=== PATIENT | female | born 1970 | race Caucasian/White ===

== ENCOUNTER 2020-02-28 04:34 | Outpatient (CLI) | payer OTHER, SELFPAY ==
--- NOTE | 2020-02-28 10:39 | DI.MAMMO_ITS ---
EXAM: MAMMO SCREENING CLINICAL HISTORY: screening,Z12.39 TECHNIQUE: Mammograms were interpreted according to the usual protocol including computer analysis w [employer] CAD system, tomosynthesis and C-view imaging. COMPARISON: 2012 FINDINGS: The breasts are composed of heterogeneously dense fibroglandular densities, Breast Density category C . No suspicious masses or suspicious microcalcifications are seen. No skin thickening or abnormal axillary lymph nodes are seen. There has been no significant change from prior exams. IMPRESSION: BI-RADS Category 1, Negative mammogram. Yearly screening mammography is recommended. Breast Density Category C, heterogeneously Dense. The mammogram demonstrates the patient's breast tissue is dense. Dense breast tissue is very common a nd is not abnormal but dense breast tissue can make it harder to find cancer on a mammogram. Also, de nse breast tissue may increase breast cancer risk. This information about the result of the mammogram report was provided to the patient to raise their awareness. Use this report when you speak with the patient about their risks for breast cancer, which includes their family history. At that time, you may recommend additional screening tests (Ultrasound or MRI) as they might be useful based on their r isk. A negative radiographic report should not delay biopsy if a dominant or clinically suspicious mass is present. Up to ten percent of cancers are not identified on mammography. A negative report may reinforce clinical impression. Adenosis and dense breasts may obscure an underlying neoplasm. False positive reports average 6 to 10%.
== END 2020-02-28 04:54 ==
PROVIDERS: PCP Family Medicine; Visit Provider Family Medicine
DX: Z12.31 Encounter for screening mammogram for malignant neoplasm of breast (principal)
CPT/HCPCS: 77063; 77067

== ENCOUNTER 2020-06-12 04:23 | Outpatient (CLI) | payer OTHER, SELFPAY ==
--- NOTE | 2020-06-12 09:40 | DI.RAD_ITS ---
EXAM: RF BARIUM SWALLOW CLINICAL HISTORY: dysphagia,R13.10 TECHNIQUE: 2D and realtime digital imaging was performed. CONTRAST MATERIAL: Oral barium Oral water soluble contrast was administered. COMPARISON: No exams were available for comparison FINDINGS: Standing process checker film reveals nonspecific bowel gas pattern. No free air. ESOPHAGRAM: Esophagram was performed both standing and recumbent. There was no aspiration evident. No prominent tight upper esophageal sphincter. No evidence of Zenk er's diverticulum. Diameter of the esophagus is normal. No abnormal tertiary waves demonstrated. N o Schatzki ring. No fixed lesions evident. No hiatal hernia. The GE junction appears unremarkable. No evidence of abnormal motility. No reflux demonstrated. No tertiary contractions were noted. IMPRESSION: Normal esophogram given the clinical history here I recommend ENT consultation for direct visualizati on-endoscopy.
[2020-06-12] MEDS: Barium Sulfate 60% W/V 355 ML BTL PO (09:41)
[2020-06-12] MEDS: Simethicone/Sod Bicarb/Cit Ac, 4 gram PACKET 1 PACKET PO (09:42)
== END 2020-06-12 04:43 ==
PROVIDERS: PCP Family Medicine; Visit Provider Family Medicine
DX: R13.10 Dysphagia, unspecified (principal)
CPT/HCPCS: 74221; J3490

== ENCOUNTER 2020-08-20 15:27 | Outpatient (REF) | payer OTHER, SELFPAY ==
--- NOTE | 2020-08-20 14:00 | PAPFT_PTH ---
PATIENT: Lily Santana LOC: [facility] U#:[id number] AGE/SX: 49/F ROOM: RE08/20/[address]: Desi Noonan MD, DC : 1970 BED: DIS: 08/20/2020 SPEC #: [id number] RECD: 08/21/20 12:54 STATUS: KENIAMolly RERoxanne #: [id number] JOLYNN: 08/20/20 14:[address]: Desi Noonan DEPT: [facility] Cytology RECD BY: Jessica Payan Tissues: 1 - CX/ENDOCX FOR PAP SMEARS Procedures: PAP THIN PREP/UVM Screening HPV DNA PROBE Comments: [id number]
== END 2020-08-20 15:28 | disposition home or self-care (01) ==
LOC: LBN 15:27
PROVIDERS: PCP Family Medicine; Visit Provider Family Medicine
DX: Z12.4 Encounter for screening for malignant neoplasm of cervix (principal); Z11.51 Encounter for screening for human papillomavirus (HPV)
CPT/HCPCS: 88142; 87624

== ENCOUNTER 2021-04-26 14:04 | Outpatient (REF) | payer OTHER, SELFPAY ==
[2021-04-26 20:29] LABS: Abs Immature Grans 0.01 10^3/uL (0.0-0.06); Absolute Basophil Count 0.03 10^3/uL (0.0-0.2); Absolute Eosinophil Count 0.17 10^3/uL (0.0-0.7); Absolute Lymphocyte Count 1.94 10^3/uL (1.2-3.4); Absolute Monocyte Count 0.61 10^3/uL (0.1-0.8); Absolute Neutrophil Count 5.33 10^3/uL (1.2-6.7); Basophils % 0.4; Eosinophils % 2.1; HCT 39.7 % (36.0-46.0); HGB 13.2 g/dL (11.2-15.7); Immature Grans % 0.1; MCH 29.7 pg (27.0-33.0); MCHC 33.2 % (32.0-36.0); MCV 89.2 fL (80-95); MPV 9.6 fL (8.0-11.0); Monocytes % 7.5; Neutrophils % 65.9; Nucleated RBC 0 %; Platelet Count 258 10^3/uL (130-400); RBC 4.45 10^6/uL (3.93-5.22); RDW 12.2 % (11.7-14.6); RDW-SD 39.9 fL; WBC 8.09 10^3/uL (4.4-10.8)
[2021-04-26 20:30] LABS: ALT 23 U/L (14-59); AST 19 U/L (15-37); Alkaline Phosphatase 73 U/L (46-116); Anion Gap 8.2 mmol/L (3-11); BUN 13 mg/dL (7-18); Bilirubin, Total 0.4 mg/dL (0.2-1.0); CO2 27.8 mmol/L (21.0-32.0); CREATININE 0.7 mg/dL (0.55-1.02); Calcium 8.8 mg/dL (8.5-10.1); Calculated LDL 116 mg/dL (<100); Chloride 104 mmol/L (98-107); Cholesterol 206 mg/dL (<200); Glucose 99 mg/dL (74-106); HDL Cholesterol 77 mg/dL (40-60); Potassium 4.1 mmol/L (3.5-5.1); Sodium 140 mmol/L (136-145); Total Protein 7.1 g/dL (6.4-8.2); Triglyceride 66 mg/dL (<150)
[2021-04-26 20:41] LABS: Lipase 114 U/L (73-393)
== END 2021-04-26 14:05 | disposition home or self-care (01) ==
LOC: LBN 14:04
PROVIDERS: PCP Family Medicine; Visit Provider Family Medicine
DX: I10 Essential (primary) hypertension; R10.9 Unspecified abdominal pain; R31.9 Hematuria, unspecified; Z13.6 Encounter for screening for cardiovascular disorders
CPT/HCPCS: 80053; 80061; 83690; 85025; 87086

== ENCOUNTER 2021-07-12 18:41 | Outpatient (REF) | payer OTHER, SELFPAY ==
[2021-07-12 19:41] LABS: Bilirubin Negative (Negative); Blood Large (Negative); Clarity Clear (Clear); Glucose Negative (Negative); Ketones Negative (Negative); Leukocyte Esterase Negative (Negative); Nitrite Negative (Negative); Specific Gravity >= 1.030 (1.005-1.025); Urobilinogen 0.2 EU/dL (Up TO 0.2); pH 5.5 (5-8)
[2021-07-12 19:50] LABS: Bacteria Few HPF (Negative); Crystals Negative HPF (Negative); Epithelial Cells Few HPF (Negative); RBC >50 HPF (0-2); WBC 0-2 HPF (0-5)
[2021-07-12 19:51] LABS: C & S Indicated? No; Casts Negative LPF (Negative); Mucus Trace (Negative)
== END 2021-07-12 18:42 | disposition home or self-care (01) ==
LOC: LBN 18:41
PROVIDERS: PCP Family Medicine; Visit Provider Family Medicine
DX: N39.0 Urinary tract infection, site not specified (principal)
CPT/HCPCS: 81003; 81015

== ENCOUNTER 2021-08-01 10:06 | Emergency (ER) | payer OTHER, SELFPAY ==
[2021-08-01 10:11] VITALS: BP 141/74; PULSE 68; RESP 16; TEMP 36.4; O2SAT 98
--- NOTE | 2021-08-01 10:30 | DI.CT_ITS ---
Exam(s) CT RENAL COLIC WO EXAM: CT RENAL COLIC WO INDICATION: left flank pain. COMPARISON: CT CT RENAL COLIC WO from 04/26/2021 TECHNIQUE: CT examination was performed without contrast administration. FINDINGS: Images obtained through the lung bases are unremarkable. Visualized portions of the liver and splee n appear intact. Visualized portions of the pancreas are unremarkable. Gallbladder and bile ducts are CT normal. Abdominal aorta is of normal diameter. No significant abdominal wall hernia. No significant abdominal or pelvic adenopathy. Adrenals appear normal bilaterally. The right kidney is unremarkable in appearance. No right hydronephrosis, renal mass, nephrolithiasis , or ureterolithiasis. Incidental 4 millimeter hyperattenuating renal cortical nodule probably repre sents a tiny hemorrhagic cyst. Left kidney appears mildly enlarged and there is moderate left hydronephrosis. There are nonobstruct ing lower pole left renal calculi, the largest measuring about 5 millimeters in diameter. There is dilatation of the left ureter to level just above the ureterovesical junction where there is an apparent 8 millimeter in diameter obstructing calculus. Urinary bladder is nearly empty. IMPRESSION: Obstructing 8 millimeter in diameter distal left ureteral calculus. Additional nonobstructing left r enal calculi are also noted.. RADIATION DOSE DELIVERED: 799.44mGy.cm DLP 799.44mGy.cm Total DLP !Error CTDIvol RADIATION OPTIMIZATION: All CT scans at this facility use at least one of these dose optimization te chniques: automated exposure control; mA and/or kV adjustment per patient size (includes targeted exa ms where dose is matched to clinical indication); or iterative reconstruction.
[2021-08-01 10:34] LABS: Bilirubin Negative (Negative); Blood Moderate (Negative); Clarity Clear (Clear); Glucose Negative (Negative); Ketones Negative (Negative); Leukocyte Esterase Negative (Negative); Nitrite Negative (Negative); Specific Gravity >= 1.030 (1.005-1.025); Urobilinogen 0.2 EU/dL (Up TO 0.2); pH 5.5 (5-8)
[2021-08-01 10:41] LABS: Epithelial Cells Rare HPF (Negative); WBC 0-2 HPF (0-5)
[2021-08-01 10:42] LABS: Bacteria Rare HPF (Negative); C & S Indicated? No; Casts Negative LPF (Negative); Crystals Negative HPF (Negative); Mucus Trace (Negative)
[2021-08-01 10:53] LABS: Abs Immature Grans 0.03 10^3/uL (0.0-0.06); Absolute Basophil Count 0.03 10^3/uL (0.0-0.2); Absolute Eosinophil Count 0.16 10^3/uL (0.0-0.7); Absolute Lymphocyte Count 1.69 10^3/uL (1.2-3.4); Absolute Monocyte Count 0.65 10^3/uL (0.1-0.8); Basophils % 0.4; Eosinophils % 1.9; HCT 41.8 % (36.0-46.0); HGB 14.1 g/dL (11.2-15.7); Immature Grans % 0.4; Lymphocytes % 20.5; MCH 29.9 pg (27.0-33.0); MCHC 33.7 % (32.0-36.0); MCV 88.6 fL (80-95); Monocytes % 7.9; Neutrophils % 68.9; Nucleated RBC 0 %; Platelet Count 216 10^3/uL (130-400); RBC 4.72 10^6/uL (3.93-5.22); RDW 11.9 % (11.7-14.6); WBC 8.26 10^3/uL (4.4-10.8)
--- NOTE | 2021-08-01 10:57 | W.ED.GENAD ---
Discharge Plan Disposition Patient Disposition: HOME Condition: Stable Discharge Details Clinical Impression: Hydronephrosis with renal and ureteral calculous obstruction Primary Care Provider: Desi Noonan ED Provider: Fernando Suarez Home Meds and New Rx's Prescriptions: New ketorolac 10 mg tablet 10 mg PO Q6H PRN (Reason: pain) 5 Days Qty: 15 0RF tamsulosin [Flomax] 0.4 mg capsule 0.4 mg PO QHS Qty: 14 0RF Continued epinephrine 0.3 mg/0.3 mL syringe 0.3 mg subcut Q15M Qty: 2 3RF Rx Instructions: go to the hospital after injecting med Mirena 1 EACH intrauterine device 1 ea Intrauterine ONCE Qty: 1 0RF No Action ondansetron HCl 4 mg tablet 4 mg PO TID-QID PRN (Reason: nausea and vomiting) Qty: 10 0RF Discharge Instructions Instructions: Kidney Stones (ED) Additional Instructions: Continue to monitor your symptoms and feel free to return for any new or significant worsening of symptoms as discussed. These would include uncontrollable vomiting, fever chills, severe worsening of pain, or any further concerns. Due to the medications you received in the emergency department please do not take any further NSAIDs until 7 PM this evening. This will include the prescribed pain medication. You may take acetaminophen as needed just follow directions on packaging. Stay well-hydrated and follow-up with urologist as directed by their office. If you do not hear from the urology office in the next 24 to 48 hours please call them to arrange your appointment. Referrals: Raciel Kerns MD [ [facility] STAFF PHYSICIAN] - 1 week Discharge Data Discharge Date/Time-TO BE ENTERED AT DEPARTURE: 08/01/21 12:54 Medical Decision Making Patient presenting the emergency department for chief complaint of abdominal abdominal/flank pain, nausea vomiting. Patient states that since March she has had intermittent hematuria with discomfort which they feel is secondary to renal calculi. This morning she had severe discomfort, no hematuria, nausea and vomiting. Physical exam shows left lower quadrant tenderness and left CVA tenderness. Exam is otherwise unremarkable for acute findings. Suspicious for renal calculi but given worsening symptoms compared to baseline we will plan on repeat advanced imaging along with labs fluids and pain medication. CT findings show a millimeter obstructing stone in the left ureter with hydro nephrosis CBC unremarkable, CMP also not worrisome, UA does show moderate amount of blood but no signs of infection. Patient reassessed and does state improvement of symptoms. Discussed with patient outpatient treatment with follow-up with urology. Patient placed upon NSAIDs, Flomax, and follow-up list for urology follow-up given significant size of stone. At this time I do not feel that patient has infected stone but discussed clearly return and follow-up precautions. This documentation was generated using [employer] dictation system, please disregard any oddities of phrase or misspellings. HPI General Mode of arrival: ambulatory. Date/Time Provider Initiated Documentation: 08/01/21 10:11. Limitations to Documentation: no limitations. Information obtained by: patient, RN notes reviewed and old records reviewed. History of Present Illness 50 year old F presents to the emergency department with the chief complaint of Left flank pain, nausea vomiting, described as severe and similar to prior episodes, with intensity rated at 7. Quality is described as aching, sharp and constant, and is localized to the abdomen and left. Patient flank. Patient started experiencing this hour(s) (2) and it has been constant. improves with No relieving factors improve symptom(s), No exacerbating factors reported . Patient notes no other symptoms.. Patient did receive the following treatments prior to arrival, none and NSAID (600mg ibuprofen) Related Data Home Medications Medication Instructions Recorded Confirmed levonorgestrel 20 mcg/24 hours (7 1 ea INTRAUTERINE ONCE #1 implant 04/01/16 08/02/21 yrs) 52 mg intrauterine device (Mirena) epinephrine 0.3 mg/0.3 mL 0.3 mg (0.3 mL) SUBCUT Q15M #2 ea 05/26/20 08/02/21 injection syringe ketorolac 10 mg tablet 10 mg PO Q6H PRN 5 Days #15 tab 08/01/21 08/02/21 tamsulosin 0.4 mg capsule (Flomax) 0.4 mg PO QHS #14 cap 08/01/21 08/02/21 ondansetron HCl 4 mg tablet 4 mg PO TID-QID PRN #10 tab 08/02/21 08/02/21 Previous Rx's Medication Instructions Recorded epinephrine 0.3 mg/0.3 mL 0.3 mg (0.3 mL) SUBCUT Q15M #2 ea 05/26/20 injection syringe ketorolac 10 mg tablet 10 mg PO Q6H PRN 5 Days #15 tab 08/01/21 tamsulosin 0.4 mg capsule (Flomax) 0.4 mg PO QHS #14 cap 08/01/21 ondansetron HCl 4 mg tablet 4 mg PO TID-QID PRN #10 tab 08/02/21 Allergies Allergy/AdvReac Type Severity Reaction Status Date / Time garlic Allergy Severe Verified 08/02/21 14:17 General Stated Complaint: FlankPain KIM: 3 Review of Systems Constitutional Constitutional: Denies body ache(s), Denies chills, Denies fever(s), Denies malaise and Denies weakness Cardiovascular Cardiovascular: Denies chest pain Respiratory Respiratory: Reports system reviewed and no additional complaints, except as documented Gastrointestinal Gastrointestinal: Reports abdominal pain, Reports nausea and Reports vomiting Genitourinary Genitourinary: Reports as per HPI, Denies hematuria (None today but has occurred in the past), Denies difficulty voiding, Denies dysuria, Reports flank pain, Denies urinary urgency and Denies vaginal discharge Musculoskeletal Musculoskeletal: Denies back pain Neurologic Neurologic: Denies confusion and Denies weakness Psychiatric Psychiatric: Denies confusion PFSH All Active Problems (Updated 08/02/21 @ 14:16 by Geovany Abreu) Nonintractable headache (Acute 08/17/15) IUD surveillance (Acute 02/26/16) Allergies (Acute) Dysphagia (Acute) UTI (urinary tract infection) (Acute) Hydronephrosis with renal and ureteral calculous obstruction (Acute) Medical History (Updated 08/02/21 @ 14:16 by Geovany Abreu) 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 denies this Family History Mother No problems noted. Father Heart disease Brother No problems noted. Son No problems noted. Daughter No problems noted. Daughter No problems noted. Maternal Grandfather , 84 No problems noted. Paternal Grandfather , 76 No problems noted. Maternal Grandmother , 92 No problems noted. Paternal Grandmother , 82 No problems noted. Social History Smoking/Tobacco Use Status: Never Second Hand Exposure: Yes Smoking risk assessment performed?: Yes Alcohol Intake: current Alcohol Intake frequency: holidays/special occasions only Alcohol type: hard liquor Drug use: Never Substance use type: does not use Caregiver/Support person: No Household members: spouse and children Housing: house Communication Needs: None Pets and animals: Yes Pets and animals: cat(s) Sexually active: Yes Do you think of yourself as: straight/heterosexual Current gender identity: female What is your relationship status?: How often do you talk on the phone with friends or family?: three or more times per week How often do you get together with friends or relatives?: decline to answer How often do you attend scientology or mormon services?: decline to answer Do you belong to any clubs or organized social groups?: yes Panel score (0-1 are the most socially isolated patients): 3 What type of physical activity do you participate in: regular exercise Duration: 15-30 minutes/day Frequency: 5-6 times per week Shaye/Denominational: [employer] Special shaye needs: No Seatbelt use: always Helmet use: Yes Drive intox or ride w/intox company driver: No Do you feel safe at home: Yes Do you feel safe in your relationship?: Yes Exam Const General: cooperative and no acute distress Orientation: alert, awake and oriented x3 Resp Effort & Inspection: normal respiratory effort and able to speak in complete sentences Auscultation: clear to auscultation bilaterally Cardio Rate: regular rate Rhythm: regular rhythm Heart Sounds: S1 normal and S2 normal GI Palpation: not firm, no guarding, not rigid and tender in the LLQ General: CVA tenderness on the left Back/Spine/Pelvis Back: CVA tenderness Neuro General: patient alert, patient awake and patient oriented x3 Extrem General: capillary refill normal Course Vital Signs Vital signs: Vital Signs Temperature 36.4 C L 08/01/21 10:11 Pulse 68 08/01/21 10:11 Respiratory Rate 16 08/01/21 10:11 Blood Pressure 141/74 H 08/01/21 10:11 Pulse Oximetry 98 08/01/21 10:11 Temperature 36.4 C L 08/01/21 10:11 Pulse 68 08/01/21 10:11 Respiratory Rate 16 08/01/21 10:11 Respiratory Effort Non-Labored 08/01/21 10:16 Blood Pressure 141/74 H 08/01/21 10:11 Blood Pressure Position Sitting 08/01/21 10:11 Pulse Oximetry 98 08/01/21 10:11 Oxygen Delivery Method Room Air 08/01/21 10:11 Oxygen Flow Rate 0 08/01/21 10:11 Pain Level 7 08/01/21 10:26 Lab/Test Results Lab/Test Results: Laboratory Tests Range/Units 08/01/21 08/01/21 10:10 10:19 WBC (4.4-10.8) 10^3/uL 8.26 RBC (3.93-5.22) 10^6/uL 4.72 Hgb (11.2-15.7) g/dL 14.1 Hct (36.0-46.0) % 41.8 MCV (80-95) fL 88.6 MCH (27.0-33.0) pg 29.9 MCHC (32.0-36.0) % 33.7 RDW (11.7-14.6) % 11.9 Plt Count (130-400) 10^3/uL 216 MPV (8.0-11.0) fL 9.0 Immature Gran % 0.4 Neutrophils % 68.9 Lymphocytes % 20.5 Monocytes % 7.9 Eosinophils % 1.9 Basophils % 0.4 Nucleated RBC % % 0 Absolute Neutrophils (1.2-6.7) 10^3/uL 5.70 Absolute Lymphocytes (1.2-3.4) 10^3/uL 1.69 Absolute Monocytes (0.1-0.8) 10^3/uL 0.65 Absolute Eosinophils (0.0-0.7) 10^3/uL 0.16 Absolute Basophils (0.0-0.2) 10^3/uL 0.03 Urine Color (Yellow) Yellow Urine Clarity (Clear) Clear Urine pH (5-8) 5.5 Ur Specific [place] (1.005-1.025) >= 1.030 H Urine Protein (Negative) mg/dL Trace H Urine Ketones (Negative) mg/dL Negative Urine Blood (Negative) Moderate H Urine Nitrite (Negative) Negative Urine Bilirubin (Negative) Negative Urine Urobilinogen (Up TO 0.2) EU/dL 0.2 Ur Leukocyte Esterase (Negative) Negative Urine RBC (0-2) HPF 10-20 H Urine WBC (0-5) HPF 0-2 Ur Epithelial Cells (Negative) HPF Rare Urine Crystals (Negative) HPF Negative Urine Bacteria (Negative) HPF Rare Urine Casts (Negative) LPF Negative Urine Mucus (Negative) Trace Ur Culture Indicated? No Urine Glucose (Negative) mg/dL Negative POC- Test(urine) Negative
[2021-08-01] MEDS: HYDROmorphone 2 MG/ML VIAL 0.5 MG IVP (10:58)
[2021-08-01] MEDS: Ondansetron 4 MG/2 ML VIAL IVP (10:59)
[2021-08-01] MEDS: Normal Saline 1,000 ML 1000 ML IV (11:00)
[2021-08-01 11:10] LABS: ALT 15 U/L (14-59); AST 18 U/L (15-37); Albumin 4.2 g/dL (3.4-5.0); Alkaline Phosphatase 72 U/L (46-116); Anion Gap 6.9 mmol/L (3-11); BUN 16 mg/dL (7-18); Bilirubin, Total 0.6 mg/dL (0.2-1.0); CO2 27.1 mmol/L (21.0-32.0); Calcium 9.1 mg/dL (8.5-10.1); Chloride 107 mmol/L (98-107); Estimated GFR 59.18 (mL/min/1.73m2); Glucose 90 mg/dL (74-106); Potassium 3.9 mmol/L (3.5-5.1); Sodium 141 mmol/L (136-145); Total Protein 7.7 g/dL (6.4-8.2)
--- NOTE | 2021-08-01 11:30 | DI.VRAD_ITS ---
PROCEDURE INFORMATION: Exam: CT Abdomen And Pelvis Without Contrast Exam date and time: 08/01/2021 10:45 AM Age: 50 years old Clinical indication: Other: Left flank pain TECHNIQUE: Imaging protocol: Computed tomography of the abdomen and pelvis without contrast. COMPARISON: CT RENAL COLIC WO 04/26/2021 3:15 PM FINDINGS: Lungs: Visualized lung bases are clear. No pleural effusions. Liver: Unremarkable. Gallbladder and bile ducts: Unremarkable. No calcified gallstones. No intrahepatic or extrahepatic biliary ductal dilation. Pancreas: Unremarkable. Spleen: Unremarkable. No splenomegaly. Adrenal glands: Unremarkable. No masses. Kidneys and ureters: There is moderate left hydroureteronephrosis secondary to an obstructing 8 mm x 4 mm x 8 mm calculus in the distal left ureter, just proximal to the ureterovesical junction (series 2, image 109 and series 4, image 52). This calculus measures 848 Hounsfield units in attenuation. There is mild left perinephric fat stranding, consistent with acute obstructive uropathy. There are 3 calculi in the lower pole of the left kidney which measure 1 mm, 4 mm, and 5 mm, respectively. No calcifications are identified in the right kidney or right ureter. The right renal collecting system and right ureter are normal in caliber. An incidental subcentimeter focus cortical hyperattenuation in the lateral mid right kidney most likely represents an incidental tiny hemorrhagic cyst. Stomach and bowel: Unremarkable. No obstruction. No mucosal thickening. Appendix: A normal, nondilated retrocecal appendix is identified. Intraperitoneal space: Unremarkable. No ascites, fluid collection, or pneumoperitoneum. Retroperitoneal space: Unremarkable. No retroperitoneal collection or mass. Vasculature: Unremarkable. The abdominal aorta is normal in caliber. Lymph nodes: No pathologically enlarged lymph nodes. Urinary bladder: Unremarkable. Reproductive: There is an intrauterine device in place. The uterus has a lobulated contour suggesting the presence of a right fundal fibroid, otherwise not well assessed by noncontrast CT technique. Bones/joints: No suspicious osseous lesions. Lower lumbar spondylosis and transitional lumbosacral anatomy are noted. Soft tissues: Unremarkable. Other findings: None. IMPRESSION: 1. Moderate left hydroureteronephrosis secondary to an 8 mm x 4 mm x 8 mm calculus in the distal left ureter. 2. Multiple small calculi in the left kidney. 3. Additional incidental/nonemergent findings are discussed in the body of the report. Dictated and Authenticated by: Lynn Khan MD. Ordering:MANDY King MD
--- NOTE | 2021-08-01 12:14 | NUR.NOTE ---
Nursing Note: Referral faxed to [facility]rology for 8mm kidney stone for follow up; time frame at their discretion. Letty Denny
[2021-08-01] MEDS: Ketorolac 15 MG/ML VIAL IVP (12:26)
--- NOTE | 2021-08-01 18:46 | NUR.NOTE ---
Nursing Note: Lily's called stating she was having a lot of pain and vomiting. Advised to come back to er for pain management and vomiting treatment. He states that her next pain pill is due at 7:00 and they will see if she can keep it down. Encouraged to come back to er at any time her pain and vomiting is out of controll. Verbalizes understanding.
[2021-08-02 14:10] LABS: Source Nasal/Nares
[2021-08-02 14:50] LABS: COVID-19 PCR Negative (Negative)
== END 2021-08-01 12:54 | disposition home or self-care (01) ==
PROVIDERS: Urology; Emergency Provider Nurse Practitioner Family; PCP Family Medicine
DX: N13.2 Hydronephrosis with renal and ureteral calculous obstruction (principal)
CPT/HCPCS: 36415; 80053; 81025; 87635; 96361; 96374; 96375; 99284; 74176; 81003; 81015; 84550; 85025; J1885; J2405

== ENCOUNTER 2021-08-03 06:10 | Day surgery (SDC) | payer OTHER, SELFPAY ==
[2021-08-03] VITALS (8 sets, daily range): BP systolic 102–121; BP diastolic 57–72; PULSE 55–67; RESP 9–18; TEMP 36.6–36.7; O2SAT 98–100; BMI 26.4
--- NOTE | 2021-08-03 06:47 | HPE_ITS ---
Date of service: 08/03/21 Time of Service: 06:47 Assessment and Plan Assessment and plan (1) Hydronephrosis with renal and ureteral calculous obstruction: Status: Acute Assessment and plan: With her large ureteral stone and her persistent symptoms, we will move forward with ureteroscopy. If we are unable to access her stone ureteroscopically, we may need to place a ureteral stent temporarily and arrange for a staged procedure. History of Present Illness History of Present Illness Chief Complaint: Left ureteral stone Narrative: This is a 50 year old woman who has no prior history of kidney stones. She has been having some left-sided discomfort and intermittent gross hematuria for about 4 months.? She was evaluated with a noncontrast CT scan in March.? Nonobstructing stones were identified at that time. Since then, she has had a chronic feeling of pressure and needing to void.? She has been treated for urinary tract infections when she has seen blood in the urine.? The blood in the urine would resolve, but the pressure would remain. Two days ago, she developed severe left flank pain.? She became diaphoretic and nauseated.? She felt a knifelike pain that extended into the vaginal cavity.? She began vomiting and presented to the emergency room. While in the ER, she had a repeat CT scan.? One of her left-sided kidney stones had migrated to the left ureterovesical junction. She continues to have pain and nausea.? She is not having any fevers. She does have a family history of kidney stones (sister).? She has no known history of gout or hyperparathyroid disease. Review of Systems Narrative: No fevers or chills No vision change or dysphasia No diabetes or thyroid No shortness of breath, cough or hemoptysis No chest pain or palpitations No hepatitis, ulcers, jaundice No seizures, strokes or peripheral neuropathy No bleeding disorders or anemia No gout. 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 denies this Surgical History (Updated 08/03/21 @ 06:16 by Pavithra Jalloh) H/O discectomy Family History Mother No problems noted. Father Heart disease Brother No problems noted. Son No problems noted. Daughter No problems noted. Daughter No problems noted. Maternal Grandfather , 84 No problems noted. Paternal Grandfather , 76 No problems noted. Maternal Grandmother , 92 No problems noted. Paternal Grandmother , 82 No problems noted. Social History Smoking/Tobacco Use Status: Never Second Hand Exposure: Yes Smoking risk assessment performed?: Yes Alcohol Intake: current Alcohol Intake frequency: holidays/special occasions only Alcohol type: hard liquor Drug use: Never Substance use type: does not use Caregiver/Support person: No Household members: spouse and children Housing: house Communication Needs: None Pets and animals: Yes Pets and animals: cat(s) Sexually active: Yes Do you think of yourself as: straight/heterosexual Current gender identity: female What is your relationship status?: How often do you talk on the phone with friends or family?: three or more times per week How often do you get together with friends or relatives?: decline to answer How often do you attend restorationism or yarsanism services?: decline to answer Do you belong to any clubs or organized social groups?: yes Panel score (0-1 are the most socially isolated patients): 3 What type of physical activity do you participate in: regular exercise Duration: 15-30 minutes/day Frequency: 5-6 times per week Shaye/Faith: [employer] Special shaye needs: No Seatbelt use: always Helmet use: Yes Drive intox or ride w/intox recycling collections driver: No Do you feel safe at home: Yes Do you feel safe in your relationship?: Yes Meds Allergies and Home Medications Allergies Allergy/AdvReac Type Severity Reaction Status Date / Time garlic Allergy Severe Verified 08/03/21 06:16 Home Medications Medication Instructions Recorded Confirmed Type levonorgestrel 20 mcg/24 hours (7 1 ea INTRAUTERINE ONCE #1 implant 04/01/16 08/02/21 History yrs) 52 mg intrauterine device (Mirena) epinephrine 0.3 mg/0.3 mL 0.3 mg (0.3 mL) SUBCUT Q15M #2 ea 05/26/20 08/02/21 Rx injection syringe ketorolac 10 mg tablet 10 mg PO Q6H PRN 5 Days #15 tab 08/01/21 08/03/21 Rx tamsulosin 0.4 mg capsule (Flomax) 0.4 mg PO QHS #14 cap 08/01/21 08/03/21 Rx ondansetron HCl 4 mg tablet 4 mg PO TID-QID PRN #10 tab 08/02/21 08/03/21 Rx Exam Const General: cooperative Orientation: alert, awake and oriented x3 Neck Neck: supple Resp Effort & Inspection: normal respiratory effort Auscultation: clear to auscultation bilaterally Cardio Rate: regular rate Rhythm: regular rhythm GI Palpation: soft and no masses Neuro General: patient alert, patient awake and patient oriented x3 Results Last Vital Signs Temp 36.7 C 08/03/21 06:27 Pulse 67 08/03/21 06:27 Resp 18 08/03/21 06:27 BP 121/72 08/03/21 06:27 Pulse Ox 99 08/03/21 06:27
--- NOTE | 2021-08-03 06:49 | W.ANESPRE ---
General Info Date of Service Date Performed: 08/03/21 Height: 5 ft 3 in Weight: 67.7 kg Body Mass Index (BMI): 26.4 Surgical Procedure: Operation Date: 08/03/21 07:40 Proposed Procedure Side Surgeon p Cystoscopy/Laser/LT Retrograde/LTUreteroscopy/Poss. Stent Placement Left Raciel Kerns MD Meds Allergies and Home Medications Allergies Allergy/AdvReac Type Severity Reaction Status Date / Time garlic Allergy Severe Verified 08/03/21 06:16 Home Medication Medication Instructions Recorded levonorgestrel 20 mcg/24 hours (7 1 ea INTRAUTERINE ONCE #1 implant 04/01/16 yrs) 52 mg intrauterine device (Mirena) epinephrine 0.3 mg/0.3 mL 0.3 mg (0.3 mL) SUBCUT Q15M #2 ea 05/26/20 injection syringe ketorolac 10 mg tablet 10 mg PO Q6H PRN 5 Days #15 tab 08/01/21 tamsulosin 0.4 mg capsule (Flomax) 0.4 mg PO QHS #14 cap 08/01/21 ondansetron HCl 4 mg tablet 4 mg PO TID-QID PRN #10 tab 08/02/21 Current Visit Medications: Current Medications Generic Name Dose Route Start Last Admin Trade Name Freq PRN Reason Stop Dose Admin Ringer's Solution 1,000 mls @ 80 mls/hr 08/03/21 06:00 IV 08/26/21 23:59 INFUSION SHRUTI Cefazolin Sodium/Dextrose 2 gm in 50 mls @ 100 mls/hr 08/03/21 06:00 Ancef Duplex IVPB 08/03/21 23:59 PREOP SHRUTI IV Miscellaneous Supplies 1 each 08/03/21 06:00 Iv Access IV 08/26/21 23:59 DIRECTED SHRUTI Sodium Chloride 0 ml 08/03/21 06:00 Normal Saline Flush 10 Ml Syr IV 08/26/21 23:59 PRN PRN Sodium Chloride 0 ml 08/03/21 06:00 Normal Saline 10 Ml Vial IJ 08/26/21 23:59 DIRECTED PRN Sterile Water 0 ml 08/03/21 06:00 Water,Injection,Sterile 10 Ml Vial IJ 08/26/21 23:59 DIRECTED PRN PFSH Active Problems Active Problems: Problem Status Onset Code Nonintractable headache 08/17/15 R51 IUD surveillance 02/26/16 Z30.431 Allergies T78.40XA Dysphagia R13.10 UTI (urinary tract infection) N39.0 Hydronephrosis with renal and ureteral calculous obstruction N13.2 Medical History Medical History 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 denies this Surgical History Surgical History (Updated 08/03/21 @ 06:16 by Pavithra Jalloh) H/O discectomy Tobacco Smoking/Tobacco Use Status: Never Passive smoking exposure: Yes Second hand exposure: Yes Alcohol Alcohol Intake: current Alcohol intake frequency: holidays/special occasions only Alcohol type: hard liquor Substance Use Substance use: Never Substance use type: does not use Vital Signs and Lab Results Vital Signs Most Recent Vital Signs in EMR: Most Recent Vital Signs Temp Pulse Resp BP Pulse Ox 36.7 C 67 18 121/72 99 08/03/21 06:27 08/03/21 06:27 08/03/21 06:27 08/03/21 06:27 08/03/21 06:27 Lab Results Blood Type / Crossmatch: No Data to Display Complete Blood Count: White Blood Count 8.26 10^3/uL (4.4-10.8) 08/01/21 10:19 08/01/21 Red Blood Count 4.72 10^6/uL (3.93-5.22) 08/01/21 10:19 08/01/21 Hemoglobin 14.1 g/dL (11.2-15.7) 08/01/21 10:19 08/01/21 Hematocrit 41.8 % (36.0-46.0) 08/01/21 10:19 08/01/21 Platelet Count 216 10^3/uL (130-400) 08/01/21 10:19 08/01/21 Complete Metabolic Panel: Sodium Level 141 mmol/L (136-145) 08/01/21 10:19 08/01/21 Potassium Level 3.9 mmol/L (3.5-5.1) 08/01/21 10:19 08/01/21 Chloride Level 107 mmol/L (98-107) 08/01/21 10:19 08/01/21 Carbon Dioxide Level 27.1 mmol/L (21.0-32.0) 08/01/21 10:19 08/01/21 Blood Urea Nitrogen 16 mg/dL (7-18) 08/01/21 10:19 08/01/21 Creatinine 1.0 mg/dL (0.55-1.02) 08/01/21 10:19 08/01/21 Estimated GFR/1.73 m2 59.18 (mL/min/1.73m2) 08/01/21 10:19 08/01/21 Calcium Level 9.1 mg/dL (8.5-10.1) 08/01/21 10:19 08/01/21 Albumin 4.2 g/dL (3.4-5.0) 08/01/21 10:19 08/01/21 Glucose Level 90 mg/dL (74-106) 08/01/21 10:19 08/01/21 Liver Function Panel: Alanine Aminotransferase (ALT/SGPT) 15 U/L (14-59) 08/01/21 10:19 08/01/21 Aspartate Amino Transf (AST/SGOT) 18 U/L (15-37) 08/01/21 10:19 08/01/21 Coagulation Panel: No Data to Display Cardiac Panel: No Data to Display Arterial Blood Gas: No Data to Display Venous Blood Gas: No Data to Display Pancreas Panel: No Data to Display Thyroid Panel: No Data to Display Infectious Disease: Coronavirus (COVID-19)(PCR) Negative (Negative) 08/02/21 14:00 08/02/21 Coronavirus 2019 Source Nasal/Nares 08/02/21 14:00 08/02/21 Blood Cultures: No Data to Display Toxicology Panel: No Data to Display Panel: No Data to Display Imaging and Studies Imaging and Studies Study information below may be from another EMR and interpreted by another provider. Please see original notes in EMR for more complete details. Echocardiogram Summary: Date of Exam: 02/26/16ex: F : 1970Age: 45 *STUDY CONCLUSIONS* Summary: 1. Left ventricle: The cavity size was normal. Wall thickness was normal. Systolic function was normal. The estimated ejection fraction was 60-65%. Wall motion was normal; there were no regional wall motion abnormalities. 2. Right ventricle: The cavity size was normal. Systolic function was normal. 3. Mitral valve: Mildly thickened leaflets. Mild systolic bowing without prolapse, involving the anterior leaflet. There was mild regurgitation directed posteriorly. Anesthesia Assessment and Plan Anesthesia History Personal History: No History of Anesthesia Complications Family History: No Family History of Anesthesia Complications Exercise Tolerance Exercise Tolerance: Metabolic Equivalents>4 Pertinent Negatives Pertinent Negatives: No Symptoms of GERD Cardiac & Pulmonary Exam Cardiac Exam: Normal S1/S2 Heart Sounds Pulmonary Exam: Clear Bilateral Breath Sounds Implantable Cardiac Device Does patient have a Pacemaker or an ICD?: No Airway Exam Known Difficult Airway: No Mallampati Class: 2 Mouth Opening: Normal (> 3cm) Thyromental Distance: Greater than 3 cm Neck Range of Motion: Full ROM Neck Circumference: Normal Teeth Condition: Normal Dentition ASA Classification ASA Score: ASA 2 Emergency Case?: No NPO Status NPO Status: NPO Clears >2 hours, Solids >8 hours Status Status: Negative HCG Anesthesia Plan Resuscitation Status: Full Code Anesthesia Technique: General Anesthesia Airway Planned: LMA Monitors Used: Standard Monitors
[2021-08-03] MEDS: Lactated Ringers 1,000 ML 80 ML IV (06:51)
[2021-08-03] MEDS: Ondansetron 4 MG/2 ML VIAL IVP (07:05)
[2021-08-03] MEDS: ceFAZolin 2 GM/50 ML BAG IVPB (07:29)
[2021-08-03] MEDS: Lidocaine 2% Jelly 6 ML SYR (07:44)
[2021-08-03] MEDS: Omnipaque 300 MG/ML 50 ML BTL (08:13)
--- NOTE | 2021-08-03 08:16 | DI.RAD_ITS ---
Exam(s) XR RETROGRADE IN OR EXAM: XR RETROGRADE IN OR CLINICAL HISTORY: ureteral stone. TECHNIQUE: 2D digital imaging was performed. COMPARISON: No exams were available for comparison FINDINGS: Possibly was provided during urologic procedure. Images reveal opacification with retrograde contras t of the left collecting system passage of a wire and placement a left ureteral stent. Total fluoroscopy time 57.5 seconds. Cumulative dose 8.9855mGy IMPRESSION: DATA REPOSITORY: RADIATION DOSE DELIVERED:
--- NOTE | 2021-08-03 08:19 | W.PM.DSUDISC ---
Discharge Plan Disposition Patient Disposition: HOME Condition: Stable Discharge Details Reason For Visit: ureteroscopy Attending Provider: Raciel Kerns Primary Care Provider: Desi Noonan Meds and New Rx's Prescriptions: No Action epinephrine 0.3 mg/0.3 mL syringe 0.3 mg subcut Q15M Qty: 2 3RF Rx Instructions: go to the hospital after injecting med ondansetron HCl 4 mg tablet 4 mg PO TID-QID PRN (Reason: nausea and vomiting) Qty: 10 0RF Mirena 1 EACH intrauterine device 1 ea Intrauterine ONCE Qty: 1 0RF ketorolac 10 mg tablet 10 mg PO Q6H PRN (Reason: pain) 5 Days Qty: 15 0RF tamsulosin [Flomax] 0.4 mg capsule 0.4 mg PO QHS Qty: 14 0RF Discharge Instructions Additional Instructions: No need to strain urine Followup 3 to 7 days for stent removal - tell my office there is a string on the stent Followup with me 4 to 6 weeks with renal US Activity:: Activity as Tolerated Shower/Bathe:: 24 hours Diet:: As Tolerated Discharge Orders Discharge Orders: Discharge Order (Routine); Ordered 08/03/21 Ordered By: Raciel Kerns DS: Diagnosis Discharge Diagnosis (1) Hydronephrosis with renal and ureteral calculous obstruction: Status: Acute
--- NOTE | 2021-08-03 08:29 | W.PM.OP ---
Date of service: 08/03/21 Time of Service: 08:29 Operative Note Operative Note DATE OF PROCEDURE: 08/03/21 PRE-OP DIAGNOSIS: Left ureteral stone Left renal stones PROCEDURE: Cystoscopy, left retrograde pyelogram, Left ureteroscopy with stone extractions, insert left ureteral stent SURGEON: Raciel Kerns ANESTHESIA TYPE: General LMA/ETT Refer to Anesthesia Record Patient was transported to: PACU Patient's condition: stable Implants: 6 Montserratian by 22 to 30 cm left ureteral stent Indications: This is a 50-year-old woman who presented to the emergency department with left flank pain, nausea and pelvic pressure. On evaluation, she was identified as having a large left distal ureteral stone causing hydroureter and hydronephrosis. There were also nonobstructing stones in the lower pole of the left kidney. Because of persistent symptoms, she presents for stone manipulation. Findings: Large left distal ureteral stone Two smaller stones in left lower pole calyx Procedure Description: The patient was brought to the operating room on 08/03/2021. She was given a dose of preoperative IV antibiotics. After successful induction of general anesthesia, she was placed in the dorsal lithotomy position. Her genitalia was prepped and draped. 2% Xylocaine jelly was instilled into the urethra to act as a local anesthetic. A 22 [place]erratian rigid cystoscope was passed through the urethra into the bladder. The bladder was inspected with a 30 degree lens. The base of the bladder had distended slightly. The orifices appeared normal with no surrounding edema. The left orifice was cannulated with a 5 [place]erratian access catheter and a retrograde film was obtained by injecting Omnipaque through the access catheter under fluoroscopic guidance. A large filling defect was outlined in the left distal ureter. I was then able to pass a Glidewire through the access catheter and advanced the wire above the level of the stone. I removed the access catheter leaving the wire in place. I then passed a semirigid ureteroscope through the urethra and navigated the scope into the left ureter. A large stone was visualized. I was able to grasp the stone in a Aliyah stone basket and remove it in its entirety. We then passed the dual-lumen catheter over the wire and positioned a second wire. We removed the dual-lumen catheter and chose one of the wires as a working wire and the other as a safety wire. We advanced a ureteral access sheath over the working wire leaving the safety wire in place. I then introduced the flexible ureteroscope and identified 2 stones in the lower pole calyx. Each of the stones was grasped in a 0 tip stone basket and removed in its entirety. All stone fragments were sent to pathology for chemical analysis. We removed the ureteral access catheter and passed a 6 [place]serratian variable length stent over the safety wire. The proximal end of the stent was curled in the renal pelvis and the distal and was curled within the bladder. The positioning of the stent was confirmed both fluoroscopically and cystoscopically. The safety string was left in place and brought through the urethral meatus. The end of the safety string was tucked into the patient's vaginal cavity. She tolerated this procedure with no complications. She was taken to the recovery room in stable condition.
--- NOTE | 2021-08-03 08:49 | W.ANESPOSTOP ---
Postoperative Evaluation Date, Time and Location Date Performed: 08/03/21 Time Performed: 08:50 Patient Location: PACU Vital Signs Most Recent Imported Vital Signs: Most Recent Vital Signs Temp Pulse Resp BP Pulse Ox 36.6 C 56 L 14 112/63 98 08/03/21 08:38 08/03/21 08:38 08/03/21 08:38 08/03/21 08:38 08/03/21 08:38 Pain Score Most Recent Pain Score: Most Recent Pain Score Pain Level 0 08/03/21 08:38 Assessment Mental Status: Awake (Alert & Oriented to Patient Baseline) Airway and Respiratory Function: Patent airway with normal (patient baseline) respiratory exam Cardiovascular Function: Hemodynamically Stable Hydration Status: Adequately Hydrated Nausea & Vomiting: No Nausea or Vomiting Pain: Pt. Denies Any Pain Peripheral Nerve Block: Patient did not receive a nerve block
[2021-08-03] MEDS: Phenazopyridine 200 MG TAB PO (09:12)
[2021-08-03] MEDS: traMADol 50 MG TAB PO (09:17)
[2021-08-10 11:52] LABS: Source: Left Kidney
== END 2021-08-03 10:06 | disposition home or self-care (01) ==
PROVIDERS: PCP Family Medicine; Visit Provider Urology
PROC: (CPT 52320; principal; 2021-08-03 07:30)
DX: N13.2 Hydronephrosis with renal and ureteral calculous obstruction (principal)
CPT/HCPCS: 52320; 52332; 81025; 74420; 82365; J0690; J1100; J1885; J2001; J2405; J2704; Q9967

== ENCOUNTER → 2021-11-19 00:34 | Outpatient (CLI) | payer OTHER, SELFPAY ==
--- OUTSIDE RECORDS SUMMARY | 2021-11-19 00:41 | XMS_ITS | Encounter Summary ---
:1970 Author Organization [facility] [address] Care Team Providers Name Role Phone Desi Noonan MD Primary Care Provider Encounter Details Date Type Department Care Team Description 11/25/2010 Orders Only Pain Management at [facility], [facility] [place] [address] [facility] [phone] [facility] [place], [place] [address] (Wo rk) Social History Tobacco Use Types Packs/Day Years Used Date Never Assessed Sex Assigned at Date Recorded Not on file documented as of this encounter Plan of Treatment Not on filedocumented as of this encounter Procedures Procedure Name Priority Date/Time Associated Diagnosis Comme nts FILM LIBRARY Routine 11/25/2010 12:15 PM Results for this STORAGE ONLY MR EDT procedure ar e in SPINE the results section. documented in this encounter Results FILM LIBRARY- STORAGE ONLY MR [facility] (11/25/2010 12:15 PM EDT) Specimen (Source) Anatomical Collection Method Collection Time Re ceived Time Location / / Volume Laterality 11/25/2010 12:15 PM EDT Narrative RAD - 10/02/2013 7:08 PM EDT This is a non-reportable exam. Procedure Note Kaushik Hernandez - 10/02/2013Formatting of t his note might be different from the original. This is a non-reportable exam. Matt Lee MD [facility] FILM LIBRARY ORDERABLES Performing Organization Address City/State/ZIP Code Phon e Number DH RAD DH RAD [address] [facility] [place] [address] documented in this encounter Visit Diagnoses Not on filedocumented in this encounter Care Teams Almond Blancher Operator Relationship Specialty Start Date End Date Desi Noonan MD PCP - General 04/20/[address] [place] [address] documented as of this encounter
--- OUTSIDE RECORDS SUMMARY | 2021-11-19 00:41 | XMS_ITS | Encounter Summary ---
:1970 Author Organization [facility] [place] [address] Care Team Providers Name Role Phone Desi Noonan MD Primary Care Provider Encounter Details Date Type Department Care Team Description 12/30/2010 Abstract Infectious Disease a t [facility] Mary Khan, [place] [address] Social History Tobacco Use Types Packs/Day Years Used Date Never Assessed Sex Assigned at Date Recorded Not on file documented as of this encounter Plan of Treatment Not on filedocumented as of this encounter Visit Diagnoses Diagnosis Telangiectasia Other and unspecified capillary diseases documented in this encounter Care Teams Brand Marketing Specialist Relationship Specialty Start Date End Date Desi Noonan MD PCP - General 04/20/[address] [place], [place] [id number] documented as of this encounter
--- OUTSIDE RECORDS SUMMARY | 2021-11-19 00:41 | XMS_ITS | Clinical Summary ---
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 Overview: asymptomatic Social History Tobacco Use Types Packs/Day Years Used Date Never Smoker Alcohol Use Standard Drinks/Week Comments Not Asked 0 (1 standard drink = 0.6 oz pure alcoho l) Sex Assigned at Date Recorded Not on file Last Filed Vital Signs Vital Sign Reading Time Taken Comments Blood Pressure 110/76 12/31/2010 10:34 AM EDT Pulse 65 12/31/2010 10:34 AM EDT Temperature 36.4 ??C (97.6 ??F) 12/31/2010 10:34 AM EDT Respiratory Rate 14 12/31/2010 10:34 AM EDT Oxygen Saturation 100% 12/31/2010 10:34 AM EDT Inhaled Oxygen Concentration - - Weight 56.7 kg (125 lb) 01/05/2011 12:21 PM EDT Height 157.5 cm (5' 2) 01/05/2011 12:21 PM EDT Body Mass Index 22.86 01/05/2011 12:21 PM EDT Plan of Treatment Health Maintenance Due Date Last Done Comments Covid-19 Vaccine (#1) 1977 HIV screen 1990 Hepatitis C Screening 1990 Tdap adult 09/13/1991 Tetanus vaccine 09/13/1991 HPV test 2002 PAP Smear 2002 Breast Cancer Share Decision Needed 2012 Colonoscopy 2017 Influenza (Flu) vaccine ( - Influenza standard 01/27/2021 series) Care Teams Windows System Admin Relationship Specialty Start Date End Date Desi Noonan MD PCP - General 04/20/[address] [place] [address]
--- OUTSIDE RECORDS SUMMARY | 2021-11-19 00:41 | XMS_ITS | Encounter Summary ---
:1970 Author Organization [facility] [place] [address] Care Team Providers Name Role Phone Desi Noonan MD Primary Care Provider Reason for Visit Reason Comments Joint Pain left side Encounter Details Date Type Department Care Team Description 01/05/2011 Office Visit Pain Management at [facility] ra diculopathy [facility] Matt Orozco MD (Primary Dx) [facility] [address] [place] [id number] [place] [address] [phone] Social History Tobacco Use Types Packs/Day Years Used Date Never Smoker Alcohol Use Standard Drinks/Week Comments Not Asked 0 (1 standard drink = 0.6 oz pure alcoho l) Sex Assigned at Date Recorded Not on file documented as of this encounter Last Filed Vital Signs Vital Sign Reading Time Taken Comments Blood Pressure - - Pulse - - Temperature - - Respiratory Rate - - Oxygen Saturation - - Inhaled Oxygen Concentration - - Weight 56.7 kg (125 lb) 01/05/2011 12:21 PM EDT Height 157.5 cm (5' 2) 01/05/2011 12:21 PM EDT Body Mass Index 22.86 01/05/2011 12:21 PM EDT documented in this encounter Progress Notes Matt Lee MD - 01/05/2011 12:32 PM EDT Approximately 3 weeks ago this patient was holding down a blowing intent on even during a storm and the following day her radicular pain was tremendously improved. She states her pain at this time is only mild. It has been mild for approximately the past 3 weeks. On the basis of this report I am notgoing to be doing the epidural steroid injection today. 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 I have reviewed the infectious disease notes because of her colonization with methicillin resistant staph aureus. I have discussed the situation in detail with the patient including the very slight increased risk of infection, the risk of a post dural puncture headache, and the very small risks of other serious complications. Based on the fact however that she is having such mild pain I think that the potential benefit exceeds the risks at this period of time. I have advised her that if her pain returns we will get her in and do the injection within one or 2 days. We spent 15 minutes together today 10 minutes of which was spent with my advising about risks benefits and decision making under the circumstances. Urmila Carlos LPN - 01/05/2011 12:22 PM EDT Pre-Procedure Screening Questions: 1. Status: No 2. 3. 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 Yes 4. Patient taking antibiotics at present? No 5. NPO per [facility] protocol? No 6. 7. Patient diabetic: No __ borderline (not treated with medications) __ managed with oral medications __ managed with injected medications 8. Patient routinely taking anticoagulants ? No Date stopped Current INR Patient Vital Signs documented in Doc Flowsheets associated with this encounter. Patient Discharge Instructions were reviewed with patient and copy provided to patient. documented in this encounter Plan of Treatment Not on filedocumented as of this encounter Visit Diagnoses Diagnosis Lumbar radiculopathy - Primary Thoracic or lumbosacral neuritis or radi culitis, unspecified documented in this encounter Care Teams Paranormal Investigator Relationship Specialty Start Date End Date Desi Noonan MD PCP - General 04/20/[address] [place] [address] [address] [place] [address] documented as of this encounter
--- OUTSIDE RECORDS SUMMARY | 2021-11-19 00:41 | XMS_ITS | Encounter Summary ---
:1970 Author Organization [facility] [place] [address] Care Team Providers Name Role Phone Desi Noonan MD Primary Care Provider Reason for Visit Reason Comments MRSA Encounter Details Date Type Department Care Team Description 12/31/2010 Office Visit Infectious Disease Ijeoma Benavides MD Staphylococcal infection at [facility] of skin (Primary Dx) [facility] [address] INFECTIOUS [place], [place] DISEASE DEPT [id number] [place] [address] [phone] Social History Tobacco Use Types Packs/Day Years [...] - - Weight 56.7 kg (125 lb) 12/31/2010 10:34 AM EDT Height 157.5 cm (5' 2) 12/31/2010 10:34 AM EDT Body Mass Index 22.86 12/31/2010 10:34 AM EDT documented in this encounter Progress Notes Tray Willingham MD - 12/31/2010 1:17 PM EDT ID Attending Data - Generally well 40F with two prior episodes of staphylococcal boils rx'd with I&D then PO abx with complete sx resolution now 8 days off abx, now contemplating epidural injection next Monday and subsequent potential surgery being discussed subsequently. No current contacts with skin lesions but previously both daughter and had some, both both in Jan. Prior rx included beyond PO abx mupirocin and protracted periods of QID showers with Hibiclens. ROS and PSFHx per Dr. Benavides. On exam she is well appearing and pleasant. There are two well-healed scars on either side of the superior buttocks without residual cellulitis or induration, no rash otherwise. Her recent staphylococcal infection puts her at slightly kyjxrwe-jxoz-ztuibby risk of surgical site infection, but the total risk is small. To reduce this as much as possible would give perioperative mupirocin. If boils recur, would need to make sure managed aggressively (as have been) to preclude thegreater associated risk of infection, something with which we can help. As for regimens given to decrease colonization, no one has proven a single approach to be efficacious although I must admit QID baths with Hibiclens is more aggressive than approaches I've seen. - mupirocin perioperatively I have confirmed the above findings independently by talking with the patient, examination the patient, and perusing the relevant laboratory, microbiological, pathological, radiological and other data. Ijeoma Benavides MD - 12/31/2010 11:41 AM EDT Reason for Consultation: Recurrent MRSA infection. History of Present Illness: Ms. Santana is a pleasant 40-year-old otherwise healthy female who was recently diagnosed with a perirectal abscess in the last of October and underwent incision and drainage with cultures positive for MRSA for which she received 10 days of tetracycline and clindamycin with complete resolution of her symptoms. About 20 days after she had another small furuncle on her left buttock about 10 to 15-mm size, which was again incised and grew MRSA, and at that time she was given an additional 10 days of tetracycline and Bactrim. She finished up her antibiotics about eight days ago and feels back to her baseline. She denies any fever or chills and has no new abscesses or wounds. Her previous wounds are completely healed. At this point she is currently using chlorhexidine bath initially with the frequency of four times a day and now once daily for the last two weeks and was advised by her physician to keep doing it for one month. She is also occasionally using mupirocin ointment for decolonization. She was recently diagnosed with lumbar disk herniation and is scheduled to have an epidural injection in about one week followed by an upcoming appointment with surgery in January for evaluation for surgical management of her herniated disk. She was sent for infectious disease evaluation to assess the safety of epidural injection as well as surgical interventions in her back in the presence of recent MRSA skin infections. Past Medical History: Herniated disk L5-S1. Medications: None. Review of Systems: Comprehensive review of systems was obtained and was unremarkable. Social History: She is and lives with her three kids, and her usual outdoor activities involve biking. Not into any contact sports. During last January her two kids and had small staph skin infections without any recurrences. She denies smoking, occasionally drinks alcohol, no illicit drug use. She is working as a dental hygienist. Family History: Dad had history of PTCA times two, otherwise no medical morbidities in mom. Three kids healthy as above. Examination: Vitals: Afebrile and normotensive. HEENT: No buccal or mucosal lesions. Moist mucous membranes. Neck: No cervical lymphadenopathy. Extremities: No areas of skin breakdown, rash, or abscesses identified. Back: Her upper buttock region in the midline has two small healed scars from previous incision and drainage site without any redness or tenderness. Neurological: Grossly nonfocal. 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 Even with her recurrent MRSA skin infection her risk of acquiring invasive MRSA infection with upcoming epidural injection is quite low. But given the benefit of decolonization before surgery would recommend the same for her Plan: 1. Chlorhexidine gluconate 2% to 4% whole body washes once daily for five days starting one day before surgery. 2. Mupirocin ointment 2% applied to nares two to three times daily again for five days starting one day before surgical intervention. 3. She can do repeat above said things later if she is scheduled for surgery. 4. She was encouraged to practice good hand hygiene. 5. Discussed with Dr. Willingham and he is agreeable that. documented in this encounter Plan of Treatment Not on filedocumented as of this encounter Visit Diagnoses Diagnosis Staphylococcal infection of skin - Prima ry Unspecified local infection of skin and subcutaneous tissue documented in this encounter Care Teams Broker Associate Relationship Specialty Start Date End Date Desi Noonan MD PCP - General 04/20/10 [address] [place] [address] documented as of this encounter
--- OUTSIDE RECORDS SUMMARY | 2021-11-19 00:41 | XMS_ITS | Encounter Summary ---
:1970 Author Organization [facility] [place] [address] Care Team Providers Name Role Phone Desi Noonan MD Primary Care Provider Encounter Details Date Type Department Care Team Description 02/24/2011 Interpretation Only Radiology at [facility] Ce nter None [address] [place] [address] [place] [address] Social History Tobacco Use Types Packs/Day Years Used Date Never Smoker Alcohol Use Standard Drinks/Week Comments Not Asked 0 (1 standard drink = 0.6 oz pure alcoho l) Sex Assigned at Date Recorded Not on file documented as of this encounter Plan of Treatment Not on filedocumented as of this encounter Procedures Procedure Name Priority Date/Time Associated Diagnosis Comme nts XR FLUORO NO RAD Routine 02/24/2011 7:09 AM Resul ts for this <1HR - RADIOLOGY EDT procedure a re in USE the results section. documented in this encounter Results XR Fluoro <1Hr - Radiology Use (02/24/2011 7:09 AM EDT) Anatomical Region Laterality Modality N/A Radiographic Imaging Specimen (Source) Anatomical Collection Method Collection Time Re ceived Time Location / / Volume Laterality 02/24/2011 7:09 AM EDT Narrative 02/24/2011 7:09 AM EDT APD Historical Result Principal Combat Systems Operator Mine Warfare: ??INNA ??ESCHBACH INTRAOPERATIVE IMAGE-INTENSIFIER FILMS: CLINICAL INDICATION: ??Microdiscectomy L 5/S1 left. FINDINGS: A total of 4.4 seconds of fluoro time wa s utilized intraoperatively by Dr Leigh David. ?? Two image-intensifier films of the lumbo sacral junction record the event. ??No Radiologist was present for the exam. Inna Cochran DO [facility] [id number] CC: Procedure Note Unknown - 11/27/2018Formatting of this n ote might be different from the original. APD Historical Result Principal Combat Systems Operator Mine Warfare: INNA COCHRAN INTRAOPERATIVE IMAGE-INTENSIFIER FILMS: CLINICAL INDICATION: Microdiscectomy L5/ S1 left. FINDINGS: A total of 4.4 seconds of fluoro time wa s utilized intraoperatively by Dr Leigh David. Two image-intensifier films of the lumbo sacral junction record the event. No Radiologist was present for the exam. Inna Cochran DO [facility] [id number] CC: Unknown IMG FLUORO ORDERABLES documented in this encounter Visit Diagnoses Not on filedocumented in this encounter Care Teams Recycling Collections Driver Relationship Specialty Start Date End Date Desi Noonan MD PCP - General 04/20/10 [address] [place] [address] documented as of this encounter
--- NOTE | 2021-11-19 07:30 | DI.MAMMO_ITS ---
Exam(s) MAMMO SCREENING EXAM: MAMMO SCREENING CLINICAL HISTORY: screening TECHNIQUE: Bilateral full field digital CC and MLO mammographic images were obtained with 3D tomosyn thesis and utilizing computer aided detection (CAD). COMPARISON: Available for comparison. FINDINGS: Masses/Architectural Distortion: None seen. Microcalcifications: No suspicious pleomorphic-type are seen. Skin Thickening/Nipple Retraction: None. IMPRESSION: 1. No significant interval change with no specific features of malignancy noted. 2. Unless there is more urgent need, screening mammography is recommended, as per [employer] guidelines. BI-RADS Category 1 - Negative Breast Density - Category C - Heterogeneously dense Breast density category C or D implies that the patient has dense breast tissue. Dense breast tissue is very common and is not abnormal but dense breast tissue can make it harder to find cancer on a ma mmogram. Also, dense breast tissue may increase their breast cancer risk. This information about the result of the mammogram report was provided to the patient to raise their awareness. Use this report when you speak with the patient about their risks for breast cancer, which includes their family hist ory. At that time, you may recommend for more screening tests (Ultrasound or MRI) as they might be us eful based on their risk. A negative radiographic report should not delay biopsy if a dominant or clinically suspicious mass is present. Up to ten percent of cancers are not identified on mammography. A negative report may reinforce clinical impression. Adenosis and dense breasts may obscure an underlying neoplasm. False positive reports average 6 to 10%. Patient will receive a letter notifying them of these results.
== END ==
PROVIDERS: PCP Family Medicine; Visit Provider Nurse Practitioner Family
DX: Z12.31 Encounter for screening mammogram for malignant neoplasm of breast (principal)
CPT/HCPCS: 77063; 77067

== ENCOUNTER → 2023-01-05 01:39 | Outpatient (CLI) | payer BC, SELFPAY ==
--- NOTE | 2023-01-05 06:30 | DI.RAD_ITS ---
Exam(s) XR ABDOMEN FLAT PLATE EXAM: 2D digital imaging was performed. CLINICAL HISTORY: monitoring right renal calculi,Z87.442. COMPARISON: CR,RF RF BARIUM SWALLOW from 06/12/[address] RENAL COLIC WO from 08/01/2021 TECHNIQUE: Supine views of the abdomen performed. Two views were obtained. FINDINGS: BOWEL GAS PATTERN: Nondistended. CALCIFICATIONS: Stable pelvic phleboliths are seen. There is an IUD in the pelvis. The kidneys are largely obscured by overlying bowel. No urinary tract calculi are identified. OSSEOUS STRUCTURES: Normal for age. OTHER FINDINGS: Lung bases are clear. IMPRESSION: No urinary tract calculi are identified. DATA REPOSITORY: RADIATION DOSE DELIVERED:
== END ==
PROVIDERS: PCP Family Medicine; Visit Provider Nurse Practitioner Gerontology
DX: Z87.442 Personal history of urinary calculi (principal)
CPT/HCPCS: 74018

== ENCOUNTER 2023-05-09 06:19 | Emergency (ER) | payer BC, SELFPAY ==
[2023-05-09 06:22] VITALS: BP 125/77; PULSE 72; RESP 18; TEMP 36.6; O2SAT 98
--- NOTE | 2023-05-09 06:30 | DI.RAD_ITS ---
Exam(s) XR FOOT RT COMPLETE EXAM: XR FOOT RT COMPLETE CLINICAL HISTORY: Right lateral foot pain. TECHNIQUE: 2D digital imaging was performed of the right foot. Three images were obtained. AP, obl ique and lateral views were obtained. COMPARISON: No exams were available for comparison FINDINGS: BONES: There is a mildly displaced fracture at the medial aspect of the base of the proximal phalanx of the 5th toe. No bony destructive lesion is seen. JOINTS: No dislocation present. SOFT TISSUE: Normal. IMPRESSION: Mildly displaced intra-articular fracture of the base of the proximal phalanx of the 5th toe. DATA REPOSITORY: RADIATION DOSE DELIVERED:
--- NOTE | 2023-05-09 06:41 | W.ED.GENAD ---
Discharge Plan Discharge Details Chief Complaint: Orthopedic Primary Care Provider: Desi Noonan ED Provider: Evangelist Astudillo Home Meds and New Rx's Prescriptions: No Action Mirena 1 EACH intrauterine device 1 ea Intrauterine ONCE Qty: 1 epinephrine 0.3 mg/0.3 mL syringe 0.3 mg subcut Q15M Qty: 2 3RF Rx Instructions: go to the hospital after injecting med HPI General Date/Time Provider Initiated Documentation: 05/09/23 06:19. HPI Narrative: MDM This is an overall very well-appearing normothermic and not tachycardic 52-year-old female with right fifth metatarsal head pain status post forceful eversion on floor concerning for possibility of fracture. No midfoot instability to suggest this a leticia injury. No lateral foot tenderness to suggest a Michelle fracture. No history of axial loading to suggest talar fracture. No pain out of proportion to suggest necrotizing soft tissue infection. No erythema to suggest cellulitis. No fluctuance to suggest abscess. Given no head strike no indication for CT head. Will complete plain films and place patient in a walking boot for comfort. If plain films are negative and patient does not want to wear a boot is certainly not unreasonable for her to continue to wear her soft soled shoes however I did advise that a boot would offload her foot and allow her even a ligamentous or muscular injury time to rest and heal. Will advise ice for 20 minutes on 20 minutes off throughout the day along with elevation today. Patient declined oral analgesia in the ED. Will sign patient out to oncoming daytime provider pending radiology report. HPI This is a previously healthy 52-year-old female arrived to the emergency department via private vehicle after a fall this morning walking down some stairs. Patient reports that she lost her balance and she hit her right foot on the lateral side on the hardwood floor. She had no preceding chest pain shortness of breath dizziness or loss of consciousness. She has been able to ambulate subsequently able to bear weight on her right lower extremity using her heel. She did not hit her head. She has no prior history of fractures to this foot. She was in her usual state of health earlier this morning. She works as a dental hygienist. She is having no pain in her calf nor knee. Exam General: Well-appearing in no acute distress speaking in complete sentences. Head: Normocephalic, atraumatic. Eye: Extraocular eye movements intact. No conjunctival injection. No scleral icterus. Ear, nose, mouth, throat: Grossly normal inspection. Normal voice, handling secretions normally. Neck: Trachea midline. Cardiovascular: Well-perfused distal extremities. Respiratory: Nonlabored respiration. Gastrointestinal: Nondistended abdomen. Musculoskeletal: Right foot warm well-perfused with 2+ PT and DP pulses. Cap refill less than 2 seconds in the right toes. Patient is able to dorsi and plantarflex with 4 out of 5 strength limited secondarily by pain. Patient does have some tenderness at the head of her fifth metatarsal. No obvious deformities. No significant swelling. No fluctuance. No midfoot instability. No talar or calcaneal tenderness. No pain at the base of the fifth metatarsal. Skin: Normal for age and race, grossly normal temperature and turgor. No acute rash. Neurologic: Alert and appropriate, no apparent acute deficits. Psychiatric: Mood and manner are appropriate. Grooming and personal hygiene are appropriate. Related Data Home Medications Medication Instructions Recorded Confirmed levonorgestrel 21 mcg/24 hours (8 1 ea intrauterine ONCE #1 implant 04/01/16 05/09/23 yrs) 52 mg intrauterine device (Mirena) epinephrine 0.3 mg/0.3 mL 0.3 mg (0.3 mL) subcut Q15M #2 ea 02/18/22 05/09/23 injection syringe Previous Rx's Medication Instructions Recorded epinephrine 0.3 mg/0.3 mL 0.3 mg (0.3 mL) subcut Q15M #2 ea 02/18/22 injection syringe Allergies Allergy/AdvReac Type Severity Reaction Status Date / Time garlic Allergy Severe Anaphylaxis Verified 05/09/23 06:25 General Stated Complaint: Orthopedic KIM: 4 PFSH All Active Problems (Updated 05/05/22 @ 14:10 by Desi Noonan MD, DC) Encounter for annual physical exam (Acute) Nonintractable headache (Acute 08/17/15) IUD surveillance (Acute 02/26/16) Allergies (Acute) Dysphagia (Acute) UTI (urinary tract infection) (Acute) Medical History (Updated 05/05/22 @ 14:10 by Desi Noonan MD, DC) Left ureteral stone 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 denies this Surgical History (Updated 08/03/21 @ 06:16 by Pavithra Jalloh) H/O discectomy Family History (Updated 05/11/22 @ 16:09 by Lucy Edwards) Mother No problems noted. Father Heart disease Brother No problems noted. Son No problems noted. Daughter No problems noted. Daughter No problems noted. Maternal Grandfather , 84 No problems noted. Paternal Grandfather , 76 No problems noted. Maternal Grandmother , 92 No problems noted. Paternal Grandmother , 82 No problems noted. Sister No problems noted. Social History (Updated 05/11/22 @ 16:09 by Lucy Edwards) Smoking/Tobacco Use Status: Never Second Hand Exposure: Yes Smoking risk assessment performed?: Yes Alcohol Intake: current Alcohol Intake frequency: holidays/special occasions only Alcohol type: hard liquor Drug use: Never Substance use type: does not use Caregiver/Support person: No Household members: spouse and children Housing: house Communication Needs: None Do you need help understanding health information?: Never Pets and animals: Yes Pets and animals: cat(s) Sexually active: Yes Do you think of yourself as: straight/heterosexual Current gender identity: female What is your relationship status?: How often do you talk on the phone with friends or family?: three or more times per week How often do you get together with friends or relatives?: once per week How often do you attend uatsdin or holiness services?: 4 or more times per year Do you belong to any clubs or organized social groups?: yes Panel score (0-1 are the most socially isolated patients): 4 What type of physical activity do you participate in: walking Duration: 15-30 minutes/day Frequency: 5-6 times per week Shaye/Buddhism: Islam Special shaye needs: No Seatbelt use: always Helmet use: Yes Drive intox or ride w/intox semi truck driver: No Do you feel safe at home: Yes Do you feel safe in your relationship?: Yes Course Vital Signs Vital signs: Vital Signs Temperature 36.6 C 05/09/23 06:22 Pulse 72 05/09/23 06:22 Respiratory Rate 18 05/09/23 06:22 Blood Pressure 125/77 05/09/23 06:22 Pulse Oximetry 98 05/09/23 06:22 Temperature 36.6 C 05/09/23 06:22 Temperature Source Tympanic 05/09/23 06:22 Pulse 72 05/09/23 06:22 Respiratory Rate 18 05/09/23 06:22 Respiratory Effort Normal 05/09/23 06:26 Blood Pressure 125/77 05/09/23 06:22 Pulse Oximetry 98 05/09/23 06:22 Oxygen Delivery Method Room Air 05/09/23 06:22 Oxygen Flow Rate 0 05/09/23 06:22 Pain Level 6 05/09/23 06:22
--- NOTE | 2023-05-09 07:07 | W.ED.FU ---
Follow Up Plan: My preliminary assessment of the patient's plain films she has an acute appearing right fifth proximal phalange fracture. It does appear to be slightly intra-articular. Will place in a hard soled walking boot and make patient nonweightbearing with crutches. Advised healthy and according to Lyndsay patient seen by podiatry later this week. Will order acetaminophen and ibuprofen for analgesia.
[2023-05-09] MEDS: Acetaminophen 500 MG TAB 1000 MG PO (07:20)
[2023-05-09] MEDS: Ibuprofen 600 MG TAB PO (07:20)
--- NOTE | 2023-05-09 09:06 | DI.VRAD_ITS ---
PROCEDURE INFORMATION: Exam: XR Right Foot Exam date and time: 05/09/2023 6:49 AM Age: 52 years old Clinical indication: Injury or trauma; Fall; Blunt trauma; Foot; Right TECHNIQUE: Imaging protocol: Radiologic exam of the right foot. Views: 3 or more views. COMPARISON: No relevant prior studies available. FINDINGS: Bones/joints: Avulsion fracture deformity of the base of the 5th proximal phalanx Soft tissues: Normal. IMPRESSION: Avulsion fracture deformity of the base of the 5th proximal phalanx Dictated and Authenticated by: Ragini Eason MD. Ordering:CK Blanca MD
--- NOTE | 2023-05-09 20:33 | NUR.NOTE ---
At 1915 Podiatry Referral was faxed to [facility] Podiatry regarding Right Fifth Metarsal Fracture per Dr. Evangelist Astudillo's request.
--- NOTE | 2023-05-11 13:52 | NUR.NOTE ---
Patient called stating that she could not get in to Podiatry until next week, Mon. She would like an earlier appt and asked if she could call herself to another office. I told her yes she can call. If they need the note sent that can be done also. Nursing Note:
== END 2023-05-09 07:29 | disposition home or self-care (01) ==
PROVIDERS: Emergency Provider Emergency Medicine; PCP Family Medicine
DX: S92.514A Nondisplaced fracture of proximal phalanx of right lesser toe(s), initial encounter for closed fracture (principal); W01.198A Fall on same level from slipping, tripping and stumbling with subsequent striking against other object, initial encounter; Y93.01 Activity, walking, marching and hiking; Y92.019 Unspecified place in single-family (private) house as the place of occurrence of the external cause
CPT/HCPCS: 99283; 73630

== ENCOUNTER → 2023-06-23 00:46 | Outpatient (CLI) | payer BC, SELFPAY ==
--- NOTE | 2023-06-23 08:30 | DI.RAD_ITS ---
Exam(s) XR FOOT RT COMPLETE EXAM: XR FOOT RT COMPLETE CLINICAL HISTORY: ? fracture to right 5th digit,rt toe pain,M79.674. TECHNIQUE: 2D digital imaging was performed. Three views. COMPARISON: CR,XR XR FOOT RT COMPLETE from 05/09/2023 FINDINGS: BONES: There is a nondisplaced fracture extending through the medial base of the proximal phalanx of the 5th toe. The fracture extends to the articular surface was not significantly . No madeleine tional fractures. No bony destructive lesion is seen. JOINTS: No dislocation present. No significant degenerative changes. SOFT TISSUE: Normal. IMPRESSION: Nondisplaced intra-articular fracture at the base of the proximal phalanx of the 5th toe. DATA REPOSITORY: RADIATION DOSE DELIVERED:
== END ==
PROVIDERS: PCP Family Medicine; Visit Provider Podiatrist
DX: M79.674 Pain in right toe(s); Z13.820 Encounter for screening for osteoporosis; Z78.0 Asymptomatic menopausal state; S92.511A Displaced fracture of proximal phalanx of right lesser toe(s), initial encounter for closed fracture; X58.XXXA Exposure to other specified factors, initial encounter
CPT/HCPCS: 73630

== ENCOUNTER → 2023-06-23 00:52 | Outpatient (CLI) | payer BC, SELFPAY ==
--- NOTE | 2023-06-23 08:30 | DI.DEXA_ITS ---
Exam(s) XR DEXA BONE DENSITY W/WO NORY EXAM: XR DEXA BONE DENSITY W/WO NORY CLINICAL HISTORY: screening for osteoporosis in postmenopausal woman,z78.0 TECHNIQUE: [employer] C densitometer analysis of left hip, lumbar spine and left forearm. Lat eral survey image of the thoracic and lumbar spine. COMPARISON: No exams were available for comparison FINDINGS: Lateral view of the thoracic and lumbar spine shows no evidence of compression fractures. Bone mineral density measurements of the lumbar spine correspond to a total T-score of -0.9, in the normal range. Bone mineral density measurements of the left hip correspond to a total T-score of -0.9. The femora l neck T-score is 0.7, in the normal range. Theleft forearm bone mineral density measurements correspond to a T-score of the distal 3rd of 0, in the normal range. IMPRESSION: Normal bone mineral density.
== END ==
PROVIDERS: PCP Family Medicine; Visit Provider Family Medicine
DX: Z78.0 Asymptomatic menopausal state (principal); S92.515A Nondisplaced fracture of proximal phalanx of left lesser toe(s), initial encounter for closed fracture; X58.XXXA Exposure to other specified factors, initial encounter; Z13.820 Encounter for screening for osteoporosis
CPT/HCPCS: 77080

== ENCOUNTER → 2023-07-14 01:22 | Outpatient (CLI) | payer BC, SELFPAY ==
--- NOTE | 2023-07-14 08:45 | DI.RAD_ITS ---
Exam(s) XR FOOT RT COMPLETE EXAM: XR FOOT RT COMPLETE CLINICAL HISTORY: F/U Right fifth toe fracture,M79.674,S92.514A,RT TOE PAIN. TECHNIQUE: 2D digital imaging was performed. Three views. COMPARISON: CR XR FOOT RT COMPLETE from 06/23/2023 FINDINGS: BONES: There has been no change in the alignment of the fracture at the base of the proximal phalanx of 5th toe. No new abnormalities. No bony destructive lesion is seen. JOINTS: No dislocation present. SOFT TISSUE: Normal. IMPRESSION: Stable fracture alignment. DATA REPOSITORY: RADIATION DOSE DELIVERED:
== END ==
PROVIDERS: PCP Family Medicine; Visit Provider Podiatrist
DX: S92.514D Nondisplaced fracture of proximal phalanx of right lesser toe(s), subsequent encounter for fracture with routine healing (principal); M79.674 Pain in right toe(s); X58.XXXD Exposure to other specified factors, subsequent encounter
CPT/HCPCS: 73630

== ENCOUNTER → 2023-08-04 00:55 | Outpatient (CLI) | payer BC, SELFPAY ==
--- NOTE | 2023-08-04 09:15 | DI.RAD_ITS ---
Exam(s) XR SACRUM COCCYX EXAM: XR SACRUM COCCYX CLINICAL HISTORY: sacral-coccyx pain,m53.3. TECHNIQUE: 2D digital imaging was performed. Three images were obtained. COMPARISON: CR XR DEXA BONE DENSITY W/WO NORY from 06/23/2023 FINDINGS: BONES: No acute fracture is present. No bony destructive lesion is seen. JOINTS: No dislocation present. There is no evidence of ankylosis or erosions in the sacroiliac joint s. Degenerative changes are seen at the L5-S1 disc space. SOFT TISSUE: There is an IUD in the pelvis. IMPRESSION: 1. Unremarkable radiographs of the sacrum and coccyx. 2. Degenerative changes at L5-S1. 3. IUD in the pelvis. DATA REPOSITORY: RADIATION DOSE DELIVERED:
== END ==
PROVIDERS: PCP Family Medicine; Visit Provider Family Medicine
DX: M53.3 Sacrococcygeal disorders, not elsewhere classified (principal)
CPT/HCPCS: 72220

== ENCOUNTER → 2023-08-11 01:18 | Outpatient (CLI) | payer BC, SELFPAY ==
--- NOTE | 2023-08-11 15:33 | DI.RAD_ITS ---
Exam(s) XR FOOT RT COMPLETE EXAM: XR FOOT RT COMPLETE CLINICAL HISTORY: fracture consolidation eval,RT TOE PAIN,M79.674,S92.514A. TECHNIQUE: 2D digital imaging was performed. Three views. COMPARISON: CR XR FOOT RT COMPLETE from 06/23/2023 CR XR FOOT RT COMPLETE from 07/14/2023 FINDINGS: BONES: There has been no change in the alignment of the fracture at the base of the proximal phalanx of the 5th toe. The bones appear osteopenic likely related to disuse.. JOINTS: No dislocation present. SOFT TISSUE: Normal. IMPRESSION: Stable fracture alignment. DATA REPOSITORY: RADIATION DOSE DELIVERED:
== END ==
PROVIDERS: PCP Family Medicine; Visit Provider Podiatrist
DX: S92.514A Nondisplaced fracture of proximal phalanx of right lesser toe(s), initial encounter for closed fracture (principal); M79.674 Pain in right toe(s); X58.XXXA Exposure to other specified factors, initial encounter
CPT/HCPCS: 73630

== ENCOUNTER 2023-10-27 09:04 | Day surgery (SDC) | payer BC, SELFPAY ==
--- NOTE | 2023-10-26 23:41 | PDOC.DSDIS_ITS ---
Date of service: 10/27/23 Time of Service: 10:40 Discharge Plan Disposition Patient Disposition: Home Condition: Good Discharge Details Reason For Visit: Colon cancer screening Attending Provider: Rachele Grant Primary Care Provider: Desi Noonan Home Meds and New Rx's Prescriptions: Continued Mirena 1 EACH intrauterine device 1 ea Intrauterine ONCE Qty: 1 epinephrine 0.3 mg/0.3 mL syringe 0.3 mg subcut Q15M Qty: 2 3RF Rx Instructions: go to the hospital after injecting med Discontinued polyethylene glycol 3350 17 gram/dose powder 238 g PO ONCE Qty: 238 0RF Rx Instructions: take per colonoscopy instructions bisacodyl [Dulcolax (bisacodyl)] 5 mg tablet,delayed release (DR/EC) 5 mg PO ONCE Qty: 4 0RF Rx Instructions: take per colonoscopy instructions Discharge Instructions Additional Instructions: [facility] Colonoscopy Post- Op Instructions Instructions for Everyone who is given Anesthesia: For your safety, please do the following for the next twenty-four (24) hours: *Do Not operate a motor vehicle (car, truck, motorcycle, etc.) *Do Not drink alcoholic beverages or use any recreational drugs for the first 24 hours or while taking pain medications. The medications in your body may have a reaction that can be dangerous. *Do Not make any important decisions or sign any important papers. Findings: Normal colon Follow up: Repeat colonoscopy in 10 years time. Of course, you should continue to have a yearly physical exam including a rectal exam. If you should ever notice any pain or difficulty having a bowel movement, blood in the stool, unexplained weight loss, or change in your bowel habits, please contact your health provider 1. No lifting over 20 pounds or strenuous activity for the first 24 hours after your procedure. After 24 hours there are no restrictions on your activity but you may feel fatigued for a few days. 2. After you arrive home you may have a light meal and return to your normal diet as you can tolerate it without feeling sick to your stomach. 3. You may have a bloated, gaseous feeling in your belly (abdomen) after a colonoscopy. Passing gas and belching will help. Walking or lying down on your left side with your knees flexed may relieve the discomfort. Call the office at [phone] (Office) or [phone] (Hospital) right away if you notice any of the following: a.Vomiting of blood or ?coffee ground stools?. b.Rectal bleeding 1Tbsp, blood clots or continuous bleeding. c.Severe belly (abdominal) pain. d.A hard distended belly (abdomen) and an inability to pass gas. 4. Please don?t expect to have a normal BM (bowel movement) for 2-3 days after your procedure. 5. If there are questions regarding the findings of your procedure, please contact your doctor 6. If you are unable to contact your doctor with a problem, contact the hospital at [phone]. 7. Continue all your regular medications unless directed otherwise. I understand the above instructions and have no questions. Signature of Patient or Adult Escort Name of Responsible Adult Escort Signature of Nurse Date/Time Activity:: See above Diet:: See above Discharge Orders Discharge Orders: Discharge Order (Routine); Ordered 10/27/23 Ordered By: Rachele Grant DS: Diagnosis Discharge Diagnosis (1) Screening for malignant neoplasm of colon performed: Status: Acute Asessment and Plan: The patient is seen and examined after their colonoscopy.? The patient has been able to pass gas.? They are not having abdominal pain.? They have been able to tolerate liquids and a snack.? They do not have any nausea or vomiting.? They are not having any chest pain or shortness of breath.??? They are not having any rectal bleeding. Their vital signs have been stable-see nursing notes. We discussed findings during their colonoscopy, and any biopsies that were done/polyps that were removed. The patient will be sent a letter with any biopsy results, and when to repeat the colonoscopy.-see discharge instructions. Patient was given explicit instructions to follow-up regarding colonoscopy-refer to discharge instructions.? We reviewed resumption of medications. Patient verbalized understanding and discharged in stable and satisfactory condition- See nursing notes. (2) Dysphagia: Status: Acute
--- NOTE | 2023-10-26 23:41 | COLE_ITS ---
Date of service: 10/27/23 Time of Service: 10:38 Colonoscopy Report Date of procedure: 10/27/23 Pre-op diagnosis general: Colorectal cancer screening Post-op diagnosis procedure note: same Surgeon: Rachele Grant Anesthesia Type: General:No Airway Estimated blood loss (mL): 0 Pathology: none sent Complications: None Disposition: same day Prep: Miralax/Dulcolax Retraction Time: 9 Procedure Description: After informed consent was obtained the patient was taken to the procedure room and placed in a left decubitous position. Monitors were applied and a time out was done. The patients name, date of , procedure, allergies to medications and metal in their body was reviewed. The patient was then sedated. Once sedated and comfortable a rectal exam was done. External exam was normal. Internal exam revealed a normal sphincter tone and no palpable masses. The scope was then introduced and retrofelexed. No internal hemorrhoids were identified. The scope was then advanced to the cecum without difficulty. The TI and appendiceal orifice were identified. No polyps, AVMs, diverticula visualized today. The mucosa is pink and healthy with a normal vascular pattern.. The scope was then slowly retracted over 9 minutes back into the rectum. The scope was removed and the patient was woken up and taken back to Same day surgery in stable condition. The patient tolerated the procedure well and there were no immediate complications. Follow up: The patient should follow up in 10 years unless they develop changes in bowel habits or other new gastrointestinal complaints. [place] Bowel Prep [place] Bowel Prep Right Colon: 3 Left Colon: 3 Transverse Colon: 3 Total Score: 9
[2023-10-27 09:16] VITALS: BP 108/73; PULSE 64; RESP 16; TEMP 36.8; O2SAT 100
[2023-10-27] MEDS: Lactated Ringers 1,000 ML 80 ML IV (09:35)
--- NOTE | 2023-10-27 09:57 | W.ANESPRE ---
General Info Date of Service Date Performed: 10/27/23 Height: 5 ft 2.5 in Weight: 74.7 kg Body Mass Index (BMI): 29.6 Surgical Procedure: Operation Date: 10/27/23 09:50 Proposed Procedure Side Surgeon p Colonoscopy Rachele Grant DO Actual Procedure Side Surgeon p Colonoscopy Not Applicable Rachele Grant DO Pre-Op Diagnosis Post-Op Diagnosis Colon cancer screening Meds Allergies and Home Medications Allergies Allergy/AdvReac Type Severity Reaction Status Date / Time garlic Allergy Severe Anaphylaxis Verified 10/27/23 09:15 Home Medication Medication Instructions Recorded levonorgestrel 21 mcg/24 hr (up to 1 ea intrauterine ONCE #1 implant 04/01/16 8 years) 52 mg intrauterine device (Mirena) epinephrine 0.3 mg/0.3 mL 0.3 mg (0.3 mL) subcut Q15M #2 ea 02/18/22 injection syringe Current Visit Medications: Current Medications Generic Name Dose Route Start Last Admin Trade Name Freq PRN Reason Stop Dose Admin Hyoscyamine Sulfate 0.125 mg 10/27/23 11:39 Hyoscyamine 0.125 Mg Sl/Oral/Chew SL 11/26/23 11:38 DIRECTED PRN Ringer's Solution 1,000 mls @ 80 mls/hr 10/27/23 06:00 10/27/23 09:35 IV 10/27/23 23:59 80 mls/hr INFUSION SHRUTI Administration IV Miscellaneous Supplies 1 each 10/27/23 06:00 Iv Access IV 10/27/23 23:59 DIRECTED SHRUTI Ondansetron HCl 4 mg 10/27/23 11:39 Ondansetron 4 Mg/2 Ml Vial IVP 11/26/23 11:38 Q4H PRN PRN Nausea / Vomiting Sodium Chloride 0 ml 10/27/23 06:00 Normal Saline Flush 10 Ml Syr IV 10/27/23 23:59 PRN PRN Sodium Chloride 0 ml 10/27/23 06:00 Normal Saline 10 Ml Vial IJ 10/27/23 23:59 DIRECTED PRN Sterile Water 0 ml 10/27/23 06:00 Water,Injection,Sterile 10 Ml Vial IJ 10/27/23 23:59 DIRECTED PRN PFSH Active Problems Active Problems: Problem Status Onset Code Screening for malignant neoplasm of colon performed Z12.11 Stress fracture of metatarsal bone of right foot M84.374A Coccygeal pain, acute M53.3 Sacrococcygeal pain M53.3 Nondisplaced fracture of proximal phalanx of right lesser toe(s), initial encounter for closed fracture S92.514A Screening for colon cancer Z12.11 Toe pain, right M79.674 Displaced unspecified fracture of right lesser toe(s), initial encounter for closed fracture S92.501A Encounter for annual physical exam Z00.00 Nonintractable headache 08/17/15 R51 IUD surveillance 02/26/16 Z30.431 Allergies T78.40XA Dysphagia R13.10 UTI (urinary tract infection) N39.0 Medical History Medical History Left ureteral stone 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 noted on echo Surgical History Surgical History H/O discectomy Tobacco Smoking/Tobacco Use Status: Never Passive smoking exposure: Yes Second hand exposure: Yes Alcohol Alcohol Intake: current Alcohol intake frequency: holidays/special occasions only Alcohol type: hard liquor Substance Use Substance use: Never Substance use type: does not use Vital Signs and Lab Results Vital Signs Most Recent Vital Signs in EMR: Most Recent Vital Signs Temp Pulse Resp BP Pulse Ox 36.8 C 64 16 108/73 100 10/27/23 09:16 10/27/23 09:16 10/27/23 09:16 10/27/23 09:16 10/27/23 09:16 Lab Results Blood Type / Crossmatch: No Data to Display Complete Blood Count: No Data to Display Complete Metabolic Panel: No Data to Display Liver Function Panel: No Data to Display Coagulation Panel: No Data to Display Cardiac Panel: No Data to Display Arterial Blood Gas: No Data to Display Venous Blood Gas: No Data to Display Pancreas Panel: No Data to Display Thyroid Panel: No Data to Display Infectious Disease: No Data to Display Blood Cultures: No Data to Display Toxicology Panel: No Data to Display Panel: No Data to Display Imaging and Studies Imaging and Studies Study information below may be from another EMR and interpreted by another provider. Please see original notes in EMR for more complete details. Echocardiogram Summary: Date of Exam: 02/26/16ex: F : 1970Age: 45 *STUDY CONCLUSIONS* Summary: 1. Left ventricle: The cavity size was normal. Wall thickness was normal. Systolic function was normal. The estimated ejection fraction was 60-65%. Wall motion was normal; there were no regional wall motion abnormalities. 2. Right ventricle: The cavity size was normal. Systolic function was normal. 3. Mitral valve: Mildly thickened leaflets. Mild systolic bowing without prolapse, involving the anterior leaflet. There was mild regurgitation directed posteriorly. Anesthesia Assessment and Plan Anesthesia History Personal History: No History of Anesthesia Complications Family History: No Family History of Anesthesia Complications Exercise Tolerance Exercise Tolerance: Metabolic Equivalents>4 Pertinent Negatives Pertinent Negatives: No Symptoms of GERD Cardiac & Pulmonary Exam Cardiac Exam: Normal S1/S2 Heart Sounds Pulmonary Exam: Clear Bilateral Breath Sounds Implantable Cardiac Device Does patient have a Pacemaker or an ICD?: No Airway Exam Known Difficult Airway: No Mallampati Class: 2 Mouth Opening: Normal (> 3cm) Thyromental Distance: Greater than 3 cm Neck Range of Motion: Full ROM Neck Circumference: Normal Teeth Condition: Normal Dentition ASA Classification ASA Score: ASA 2 Emergency Case?: No NPO Status NPO Status: NPO Clears >2 hours, Solids >8 hours Status Status: Not Per Patient Anesthesia Plan Resuscitation Status: Full Code Anesthesia Technique: General Anesthesia Airway Planned: Natural Airway Monitors Used: Standard Monitors
[2023-10-27 09:58] VITALS: BMI 29.6
[2023-10-27 10:40] VITALS: BP 95/65; PULSE 67; RESP 16; TEMP 36.4; O2SAT 99
--- NOTE | 2023-10-27 10:45 | W.ANESPOSTOP ---
Postoperative Evaluation Date, Time and Location Date Performed: 10/27/23 Time Performed: 10:45 Patient Location: Day Surgery Unit Vital Signs Most Recent Imported Vital Signs: Most Recent Vital Signs Temp Pulse Resp BP Pulse Ox 36.4 C L 67 16 95/65 L 99 10/27/23 10:40 10/27/23 10:40 10/27/23 10:40 10/27/23 10:40 10/27/23 10:40 Pain Score Most Recent Pain Score: Most Recent Pain Score Pain Level 0 10/27/23 10:40 Assessment Mental Status: Awake (Alert & Oriented to Patient Baseline) Airway and Respiratory Function: Patent airway with normal (patient baseline) respiratory exam Cardiovascular Function: Hemodynamically Stable Hydration Status: Adequately Hydrated Nausea & Vomiting: No Nausea or Vomiting Pain: Pt. Denies Any Pain Peripheral Nerve Block: Patient did not receive a nerve block
[2023-10-27 11:10] VITALS: BP 109/62; PULSE 55; RESP 18; TEMP 36.5; O2SAT 99
== END 2023-10-27 11:40 | disposition home or self-care (01) ==
LOC: SUR 09:04
PROVIDERS: PCP Family Medicine; Visit Provider Surgery
PROC: 0DJD8ZZ Inspection of Lower Intestinal Tract, Via Natural or Artificial Opening Endoscopic (ICD-10-PCS; CPT 45378; principal; 2023-10-27 09:45)
DX: Z12.11 Encounter for screening for malignant neoplasm of colon (principal)
CPT/HCPCS: 45378; J2001; J2704

== ENCOUNTER 2023-11-23 14:02 | Outpatient (CLI) | payer BC, SELFPAY ==
--- NOTE | 2023-11-23 13:00 | DI.RAD_ITS ---
Exam(s) XR FOOT RT COMPLETE EXAM: XR FOOT RT COMPLETE CLINICAL HISTORY: F/U R FOOT FX. TECHNIQUE: 2D digital imaging was performed of the right foot. Four images were obtained. AP, obli que and lateral views were obtained. COMPARISON: CR XR FOOT RT COMPLETE from 08/11/2023 FINDINGS: BONES: The lucency is still seen at the base of the proximal phalanx of the 5th toe consistent with t he patient's prior fracture. No new fracture is seen. No bony destructive lesion is seen. JOINTS: No dislocation present. SOFT TISSUE: Normal. IMPRESSION: The lucency persists on the examination in the base of the proximal phalanx of the right 5th toe. A CT scan may be considered to assess the extent of healing. DATA REPOSITORY: RADIATION DOSE DELIVERED:
== END 2023-11-23 14:03 | disposition home or self-care (01) ==
LOC: DIORS 14:03
PROVIDERS: PCP Family Medicine; Visit Provider Student in an Organized Health Care Education/Training Program
DX: M84.374A Stress fracture, right foot, initial encounter for fracture (principal); S92.514A Nondisplaced fracture of proximal phalanx of right lesser toe(s), initial encounter for closed fracture
CPT/HCPCS: 73630

== ENCOUNTER 2024-05-17 00:09 | Outpatient (CLI) | payer BC, SELFPAY ==
--- NOTE | 2024-05-17 06:30 | DI.MAMMO_ITS ---
Exam(s) MAMMO SCREENING EXAM: MAMMO SCREENING CLINICAL HISTORY: screening,z12.39 TECHNIQUE: Bilateral full field digital CC and MLO mammographic images were obtained with 3D tomosyn thesis and utilizing computer aided detection (CAD). COMPARISON: Available for comparison. FINDINGS: Masses/Architectural Distortion: None seen. Microcalcifications: No suspicious pleomorphic-type are seen. Skin Thickening/Nipple Retraction: None. IMPRESSION: 1. No significant interval change with no specific features of malignancy noted. 2. Unless there is more urgent need, screening mammography is recommended, as per [place] [employer] guidelines. BI-RADS Category 1 - Negative Breast Density - Category B - Scattered areas of fibroglandular density Breast density category C or D implies that the patient has dense breast tissue. Dense breast tissue is very common and is not abnormal but dense breast tissue can make it harder to find cancer on a ma mmogram. Also, dense breast tissue may increase their breast cancer risk. This information about the result of the mammogram report was provided to the patient to raise their awareness. Use this report when you speak with the patient about their risks for breast cancer, which includes their family hist ory. At that time, you may recommend for more screening tests (Ultrasound or MRI) as they might be us eful based on their risk. A negative radiographic report should not delay biopsy if a dominant or clinically suspicious mass is present. Up to ten percent of cancers are not identified on mammography. A negative report may reinforce clinical impression. Adenosis and dense breasts may obscure an underlying neoplasm. False positive reports average 6 to 10%. Patient will receive a letter notifying them of these results.
== END 2024-05-17 00:29 ==
LOC: DI 00:09
PROVIDERS: PCP Family Medicine; Visit Provider Family Medicine
DX: Z12.31 Encounter for screening mammogram for malignant neoplasm of breast (principal); R92.323 Mammographic fibroglandular density, bilateral breasts
CPT/HCPCS: 77063; 77067

== ENCOUNTER 2024-06-25 16:53 | Outpatient (REF) | payer OTHER, SELFPAY ==
--- NOTE | 2024-06-25 13:30 | PAPFT_PTH ---
PATIENT: Lily Santana LOC: [facility] U#:[id number] AGE/SX: 53/F ROOM: RE06/25/[address]: Desi Noonan MD, DC : 1970 BED: DIS: 06/25/2024 SPEC #: [id number] RECD: 06/26/24 12:52 STATUS: PERFECTO REQ #: [id number] JOLYNN: 06/25/24 13:[address]: Desi Noonan DEPT: COUNTS INCLUDE 234 BEDS AT THE [facility] Cytology RECD BY: Jessica Payan Tissues: 1 - CX/ENDOCX FOR PAP SMEARS Procedures: PAP THIN PREP/UVM Screening HPV DNA PROBE Comments: [id number] (HPV 16 & 18/45)
== END 2024-06-25 16:54 | disposition home or self-care (01) ==
LOC: NCHCN 16:53
PROVIDERS: PCP Family Medicine; Visit Provider Family Medicine
DX: Z11.51 Encounter for screening for human papillomavirus (HPV) (principal); Z01.419 Encounter for gynecological examination (general) (routine) without abnormal findings
CPT/HCPCS: 88142; 87624